=== PATIENT | male | born 1950 | race Caucasian/White ===

== ENCOUNTER 2016-03-19 10:40 | Emergency (ER) | payer BC, MEDICARE ==
[~2016-03-19] VITALS: Ht 177.8 cm; Wt 75.0 kg
[2016-03-19 11:00] VITALS: Ht 177.8 cm; Wt 75.0 kg
[2016-03-19] MEDS ORDERED: SOD CHLORIDE 0.9% 1,000 ML IV STA (11:09)
[2016-03-19] MEDS ORDERED: FAMOTIDINE 20 MG INJ IV STA (11:09)
[2016-03-19] MEDS ORDERED: ONDANSETRON INJ 8 MG in DEXTROSE 5% 50 ML IV STA (11:09)
[2016-03-19] MEDS ORDERED: ONDANSETRON 4 MG INJ IV STA (11:36)
--- NOTE | 2016-03-19 11:48 | RADRPT ---
PROCEDURE: Chest Radiograph. CLINICAL INDICATION: Chest pain TECHNIQUE: Single frontal chest radiograph. COMPARISON: Chest radiograph 09/17/2008 FINDINGS: A left chest wall implantable pacer/defibrillator remains in place. Heart size is at the upper limi ts of normal. The cardiomediastinal silhouette is within normal limits. No infiltrate or effusion is seen. The bones are intact. IMPRESSION: 1. No evidence of acute cardiopulmonary disease. RPTAT: KK .Frank Antonio MD, Date Time Electronically viewed and signed by .Frank Antonio MD, MD on 03/19/2016 11:48 .B/
[2016-03-19 12:06] LABS: BASOPHILS % 0.1 % (0.0-2.0); EOSINOPHILS % 0.4 % (0.0-7.0); HEMATOCRIT 42.3 % (42.0-52.0); HEMOGLOBIN 14.3 g/dl (14.0-18.0); LYMPHOCYTES # 0.3 10^3/ul (0.8-2.9); MEAN CORPUSCULAR HEMOGLOBIN 32.5 pg (29.0-33.0); MEAN CORPUSCULAR HGB CONC 33.8 g/dl (32.0-37.0); MEAN CORPUSCULAR VOLUME 96.2 fl (82.0-101.0); MONOCYTE # 0.2 10^3/ul (0.3-0.9); MONOCYTES % 2.2 % (0.0-11.0); NEUTROPHIL # 8.4 10^3/ul (1.6-7.5); NEUTROPHILS % 94.3 % (39.0-77.0); PLATELET COUNT 147 10^3/UL (140-440); RED CELL DISTRIBUTION WIDTH 13.2 % (11.5-14.5); UNCORRECTED WBC 8.9 10^3/ul (4.8-10.8); WHITE BLOOD COUNT 8.9 10^3/ul (4.8-10.8)
[2016-03-19 12:13] LABS: CONDITION 1; LH ANALYZER COMMENTS 1
[2016-03-19 12:21] LABS: ALBUMIN 4.3 g/dl (3.3-4.9); CHLORIDE 102 mmol/L (97-110); POTASSIUM 4.9 mmol/L (3.5-5.1); SODIUM 141 mmol/L (135-144)
[2016-03-19 12:23] LABS: BILIRUBIN,INDIRECT 0.5 mg/dl (0-1.1); BILIRUBIN,TOTAL 0.5 mg/dl (0.2-1.3); CREATININE 0.98 mg/dl (0.61-1.24)
[2016-03-19 12:24] LABS: ALANINE AMINOTRANSFERASE 34 IU/L (13-69); ALBUMIN/GLOBULIN RATIO 1.22; ALKALINE PHOSPHATASE 75 IU/L (42-121); ANION GAP 18 (8-16); ASPARTATE AMINO TRANSFERASE 50 IU/L (15-46); BLOOD UREA NITROGEN 21 mg/dl (7-20); CALCIUM 9.1 mg/dl (8.4-10.2); CARBON DIOXIDE 26 mmol/L (21-31); GLUCOSE 163 mg/dl (70-220); TOTAL PROTEIN 7.8 g/dl (6.1-8.1)
[2016-03-19 12:39] LABS: INR 1.7; PROTIME 20.1 Sec (12.2-14.2); PT RATIO 1.6
[2016-03-19 12:40] LABS: PARTIAL THROMBOPLASTIN TIME 27.2 Sec (25.0-35.0)
[2016-03-19 12:41] LABS: TROPONIN-I < 0.012 ng/ml (0.00-0.12)
--- NOTE | 2016-03-19 13:02 | ERA ---
ER Documentation Chief Complaint Date/Time DATE: 03/19/16 TIME: 12:59 Chief Complaint HPI Patient is a 65-year-old male who reports significant diarrhea that started this morning around 3:00. He states that he has had overall about 8 episodes. Later this morning he developed nausea and vomiting. He has had about 2-3 episodes of vomiting. He attempted to go to work this morning and apparently at work he had either a syncopal episode or he fell asleep he is not sure which. He says he does remember feeling dizzy. He was sitting in his desk and the next thing he knows is he woke up on the desk. He denies any injuries, chest pain, shortness of breath, headache, abdominal pain, vomiting of blood, melena, hematochezia, dysuria, hematuria, fever, exposure to sick contacts, travel outside of the country, recent antibiotic exposure, abnormal rashes, bleeding or bruising. He states nothing seems to make this better or worse. In the remainder review systems are negative. ROS All systems reviewed and are negative except as per history of present illness. Medications Home Meds Reported Medications Warfarin Sodium* (Coumadin*) 5 Mg Tablet, 5 MG PO DAILY, TAB 03/19/16 Allergies Allergies: Coded Allergies: No Known Allergy (Unverified , 03/19/16) PMhx/Soc History of Surgery: Yes (PACEMAKER/DEFIB PLACEMENT) Anesthesia Reaction: No Hx Neurological Disorder: No Hx Respiratory Disorders: No Hx Cardiac Disorders: Yes (A-FIB) Hx Psychiatric Problems: No Hx Miscellaneous Medical Probl: No Hx Alcohol Use: No Hx Substance Use: No Hx Tobacco Use: No Smoking Status: Never smoker FmHx Family History: No diabetes Physical Exam Vitals Vital Signs Date Time Temp Pulse Resp B/P Pulse Ox O2 Delivery O2 Flow Rate FiO2 03/19/16 11:00 Nasal Cannula 2 03/19/16 11:00 98.2 92 16 95/40 95 Physical Exam Const: [] Well-developed thin male lying on the bed in no acute distress Head: Atraumatic normocephalic Eyes: Normal Conjunctiva ENT: Normal External Ears, Nose and Mouth. Neck: Full range of motion..~ No meningismus. Resp: Clear to auscultation bilaterally Cardio: Regular rate and rhythm, no murmurs Abd: Soft, non tender, non distended. Normal bowel sounds, no masses, no rebound, no guarding Skin: No petechiae or rashes Back: No midline or flank tenderness Ext: No cyanosis, or edema Neur: Awake and alert oriented 3, GCS equals 15, moves all extremities equally, nonfocal Psych: Normal Mood and Affect Result Diagram: 03/19/16 1100 03/19/16 1100 Results 24 hrs Laboratory Tests Test 03/19/16 11:00 Activated Partial Thromboplast Time 27.2Sec Alanine Aminotransferase (ALT/SGPT) 34IU/L Albumin 4.3g/dl Albumin/Globulin Ratio 1.22 Alkaline Phosphatase 75IU/L Anion Gap 18 Aspartate Amino Transf (AST/SGOT) 50IU/L Basophils # 0.010^3/ul Basophils % 0.1% Blood Urea Nitrogen 21mg/dl Calcium Level 9.1mg/dl Carbon Dioxide Level 26mmol/L Chloride Level 102mmol/L Creatinine 0.98mg/dl Direct Bilirubin 0.00mg/dl Eosinophils # 0.010^3/ul Eosinophils % 0.4% Globulin 3.50g/dl Glucose Level 163mg/dl Hematocrit 42.3% Hemoglobin 14.3g/dl INR International Normalized Ratio 1.70 Indirect Bilirubin 0.5mg/dl Lipase 46U/L Lymphocytes # 0.310^3/ul Lymphocytes % 3.0% Mean Corpuscular Hemoglobin 32.5pg Mean Corpuscular Hemoglobin Concent 33.8g/dl Mean Corpuscular Volume 96.2fl Mean Platelet Volume 9.0fl Monocytes # 0.210^3/ul Monocytes % 2.2% Neutrophils # 8.410^3/ul Neutrophils % 94.3% Nucleated Red Blood Cells # 0.010^3/ul Nucleated Red Blood Cells % 0.0/100WBC Platelet Count 64462^3/UL Potassium Level 4.9mmol/L Prothrombin Time 20.1Sec Prothrombin Time Ratio 1.6 Red Blood Count 4.4010^6/ul Red Cell Distribution Width 13.2% Sodium Level 141mmol/L Total Bilirubin 0.5mg/dl Total Protein 7.8g/dl Troponin I < 0.012ng/ml White Blood Count 8.910^3/ul Current Medications Medications (Trade) Dose Ordered Sig/Dolores Route PRN Reason Start Time Stop Time Status Last Admin Dose Admin Sodium Chloride 1,000 ml @ 1,000 mls/hr Q1H STAT IV 03/19/16 11:09 03/19/16 12:08 DC 03/19/16 11:37 Ondansetron HCl/ Dextrose (Zofran Inj/D5W) 54 ml @ 200 mls/hr ONCE STAT IV 03/19/16 11:09 03/19/16 11:37 DC Famotidine (Pepcid Iv) 20 mg ONCE STAT IV 03/19/16 11:09 03/19/16 11:15 DC 03/19/16 11:37 Ondansetron HCl (Zofran Inj) 8 mg ONCE STAT IV 03/19/16 11:36 03/19/16 11:38 DC 03/19/16 11:48 Procedures/MDM EKG shows normal sinus rhythm at 70 bpm, Q waves noted in leads III and aVF without any acutely ischemic changes noted, no old EKG available for comparison. CT of the abdomen and pelvis do not reveal any acute intra-abdominal process per the radiology read Chest x-ray does not reveal any acute cardiopulmonary process 1417: Patient feels much improved now. He states he feels back to his baseline. His blood pressure is improved. Systolically it is 110. He appears stable for discharge home with follow-up. Departure Diagnosis: Primary Impression: Vomiting and diarrhea Additional Impressions: Volume depletion Syncope and collapse Condition: Good Additional Instructions: Please rest and drink plenty of fluids. Take your time when getting up and standing. He may still be dizzy and weak for several days. Consume a bland diet for the next 24-48 hours and gradually resume a more normal diet as you feel comfortable. Return to the emergency department and if any time you develop fever, bloody stools, intractable vomiting, or any new or worsening symptoms. LASHELL CROW Mar 19, 2016 13:02
--- NOTE | 2016-03-19 13:05 | RADRPT ---
PROCEDURE: CT Abdomen and Pelvis without contrast. CLINICAL INDICATION: Abdominal and pelvic pain. Vomiting. TECHNIQUE: CT scan of the abdomen and pelvis without contrast was performed. Coronal and sagittal reformatted images were obtained from the axial source images. Images were reviewed on a [employer] PACS workstation. Total exam DLP is 792.73 mGy-cm. CTDIvol is 13.52 mGy. One or more of the f ollowing dose reduction techniques were used: Automated exposure control, adjustment of the mA and/o r kV according to patient size, use of iterative reconstruction technique. COMPARISON: None. FINDINGS: The lung bases are normal. There is no pleural effusion or pericardial effusion. The heart is enla rged. There is a dual lead permanent pacemaker/internal cardiac defibrillator. The liver is normal in size and attenuation. There is no focal hepatic lesion. The gallbladder and bile ducts are normal. The spleen is normal in size. There is no focal splenic lesion. Both adrenals are normal with no enlargement or mass. The pancreas is unremarkable with no mass or evidence of pancreatitis. There is no solid renal mass or hydronephrosis. There is a benign cyst inferiorly in the right kidn ey measuring 1.0 cm and a benign cyst inferiorly in the left kidney measuring 4.5 cm in maximal dime nsion. There is no renal calculus or ureteral calculus. The abdominal aorta is not dilated. There is calcification in the aorta consistent with atheroscler osis. There is no retroperitoneal lymphadenopathy or mass. There is no pelvic lymphadenopathy or mass. The bladder and distal ureters are normal. The periappendiceal region is unremarkable with no evidence of appendicitis. There is diverticulosis throughout the colon without evidence of diverticulitis. There is a fat-con taining umbilical hernia with herniated omentum measuring 2.3 x 1.9 cm in AP and transverse dimensio ns. There is no herniated bowel. Multiple surgical clips are present in the pelvis. There is no free fluid or free gas. There are degenerative changes of the spine. There is no fracture or lytic lesion. IMPRESSION: 1. Cardiomegaly. 2. Dual lead permanent pacemaker/internal cardiac defibrillator. 3. Benign renal cysts. 4. Atherosclerosis. 5. Diverticulosis throughout the colon. No evidence of diverticulitis. 6. Small fat-containing umbilical hernia with no herniated bowel. 7. Prior pelvic surgery. 8. Degenerative changes of the spine. RPTAT: QQ .Willard Sánchez MD, Date Time Electronically viewed and signed by .Willard Sánchez MD, on 03/19/2016 13:05 .R/
[2016-03-19] MEDS ORDERED: WARF5TAB72 PO (13:06)
[2016-03-19] MEDS ORDERED: DIPH1TAB PO (14:20)
[2016-03-19] MEDS ORDERED: ONDA4TAB8 PO (14:20)
[2016-03-19] MEDS ORDERED: TRAM50TA2 PO (14:21)
[2016-03-19 14:45] VITALS: BP 113/79; PULSE 78; RESP 16; TEMP 98.6
== END 2016-03-19 14:40 | disposition home or self-care (01) ==
LOC: E/R 10:40
DX: R11.10 Vomiting, unspecified (principal); E86.9 Volume depletion, unspecified; R55 Syncope and collapse; Z79.01 Long term (current) use of anticoagulants; Z95.0 Presence of cardiac pacemaker
CPT/HCPCS: 36415; 71010; 74176; 80053; 83690; 84484; 85025; 85610; 85730; 93005; 96361; 96374; 96375; 99285; J2405; J7030